=== PATIENT | female | born 1940 | race Caucasian/White ===

== ENCOUNTER 2021-03-01 21:06 | Inpatient (IN) ==
[2021-03-01] MEDS ORDERED: IOPAMIDOL 100 ML BOTTLE IV ONE (21:07)
[2021-03-01] MEDS ORDERED: ONDANSETRON 4 MG/2 ML VIAL IV ONE (22:04)
[2021-03-01] MEDS ORDERED: morphine 4 MG/ML VIAL IV ONE (22:04)
[2021-03-01] MEDS ORDERED: ACETAMINOPHEN 325 MG TABLET PO ONE (22:18)
[2021-03-01 22:23] LABS: Basophils # (Auto) 0.02 K/mcL (0.00-0.20); Basophils % (Auto) 0.2 % (0.0-2.0); Eosinophils # (Auto) 0.14 K/mcL (0.00-0.70); Eosinophils % (Auto) 1.5 % (0.0-7.0); Hematocrit 44.6 % (36.0-48.0); Hemoglobin 15.2 g/dL (12.0-15.0); Lymphocytes % (Auto) 10.5 % (15.0-49.0); Mean Cell Volume 94.5 fL (80.0-100.0); Mean Corpuscular HGB Conc 34.1 g/dL (31.0-36.0); Mean Platelet Volume 10.9 fL (7.4-10.4); Monocytes # (Auto) 0.92 K/mcL (0.10-0.90); Monocytes % (Auto) 9.6 % (1.0-12.0); Neutrophils % (Auto) 78.2 % (38.0-78.0); Platelet Count 182 K/mcL (140-440); RBC 4.72 M/mcL (4.00-5.20); Red Cell Distribution Width 13.4 % (11.5-14.5); WBC 9.6 K/mcL (4.5-11.0)
[2021-03-01 22:26] LABS: Appearance,Urine HAZY (Clear); Bilirubin,Urine Negative (Negative); Color,Urine YELLOW; Culture Indicated,Urine yes; Glucose,Urine (UA) Negative (Negative); Ketones,Urine Negative (Negative); Leukocyte Esterase,Urine 25 /ug (Negative); Mucus,Urine FEW /hpf; Nitrate,Urine Negative (Negative); Protein,Urine Negative (Negative); Specific Gravity,Urine 1.014 (1.000-1.035); Urine Blood 0.03 mg/dL (Negative); Urine RBC 8 /hpf (0-3); Urine Squamous Epithelial Cell 0 /hpf (0-4); Urine WBC 37 /hpf (0-4); Urobilinogen,Urine Negative
[2021-03-01 22:57] LABS: ALT/SGPT 16 U/L (<40); AST/SGOT 19 U/L (<32); Albumin 4.1 gm/dL (3.2-5.2); Albumin/Globulin Ratio 1.5 (1.0-2.3); Alkaline Phosphatase 84 U/L (39-117); Bilirubin,Total 0.9 mg/dL (0.1-1.0); Blood Urea Nitrogen 19 mg/dL (8-23); Calcium 9.1 mg/dL (8.6-10.4); Carbon Dioxide 22 mmol/L (22-30); Chloride 104 mmol/L (96-108); Globulin 2.7 gm/dL (2.2-3.7); Glomerular Filtration Rate 47; Glucose 128 mg/dL (70-105)
[2021-03-01 22:59] LABS: POC Creatinine 0.9 mg/dL (0.6-1.2)
[2021-03-02] MEDS ORDERED: 0.9 % SODIUM CHLORIDE 1,000 ML IV ONE (01:58)
[2021-03-02] MEDS ORDERED: ONDANSETRON 4 MG/2 ML VIAL IV PRN (02:02)
[2021-03-02] MEDS: 0.9 % SODIUM CHLORIDE 1,000 ML IV SCH ×2 (03:09→16:57)
--- NOTE | 2021-03-02 04:03 | Emergency Department Note ---
Abdominal Pain HPI General Chief Complaint: Abdominal Pain Stated Complaint: abd. pain Time Seen by Provider: 03/01/21 21:10 Source: patient Mode of arrival: ambulatory Limitations: no limitations History of Present Illness HPI Narrative: Narrative: 81-year-old female with a distant history of cervical cancer treated with surgery more than 20 years ago. Due to this she also has a chronic urostomy as well as ostomy. She is also had a history of small bowel obstructions subsequent to this. She is presenting to the ED with some generalized lower abdominal pain for the past several hours. Also decreased output from her ostomy since this morning. Has had couple episodes of nausea vomiting but no fever no chills no cardiorespiratory complaints no urinary symptoms. No other complaints. Related Data Home Medications Medication Instructions Recorded Confirmed L.acidophjasonB. lactis 1 ea PO DAILY 09/03/15 09/03/15 amlodipine 5 mg PO DAILY 09/03/15 09/03/15 cholestyramine-aspartame 210 gm PO DAILY 09/03/15 09/03/15 [Cholestyramine Light Powder] fenofibrate nanocrystallized 48 mg PO DAILY 09/03/15 09/03/15 fluticasone propionate 1 spray NS BID 09/03/15 09/03/15 furosemide 40 mg PO DAILY 09/03/15 09/03/15 gabapentin 100 mg PO TID 09/03/15 09/03/15 losartan [Cozaar] 100 mg PO DAILY 09/03/15 09/03/15 metoprolol succinate [Toprol Xl] 50 mg PO DAILY 09/03/15 09/03/15 potassium chloride [Klor-Con 20 meq PO DAILY 09/03/15 09/03/15 Sprinkle] simvastatin 10 mg PO DAILY 09/03/15 09/03/15 trimethoprim 100 mg PO DAILY 09/03/15 09/03/15 warfarin [Jantoven] 5 mg PO DAILY 09/03/15 09/03/15 Allergies Allergy/AdvReac Type Severity Reaction Status Date / Time Penicillins [PENICILLINS] Allergy Intermediate RASH, HIVES Verified 03/01/21 21:12 Sulfa (Sulfonamide Allergy Intermediate RASH,HIVES Verified 03/01/21 21:12 Antibiotics) hydrocodone [HYDROCODONE] Allergy Unknown hallucinati Verified 03/01/21 21:12 ons oxycodone [Oxycodone] Allergy Unknown Verified 03/01/21 21:12 Review of Systems ROS ROS Narrative: Narrative: At least 10 systems reviewed and otherwise acutely negative except as in the HPI [facility] Narrative Patient History Narrative: Narrative: Medical/Surgical/Family History All Active Problems SBO (small bowel obstruction) (Acute) Social History Smoking Status: Never smoker Exam Narrative Narrative: Narrative: Constitutional: normally developed, no acute distress . Head: Normocephalic, atraumatic, Eyes: No Icterus, ENT: Moist mucus membranes, Neck: Supple, Cardiac: Normal heart sounds, palpable radial pulses, no peripheral edema Pulmonary: Normal respiratory effort. Breath sounds clear, no wheeze, rhonchi, rales, Gastrointestinal: Abdomen soft, non-distended, some mild generalized tenderness no rebound no guarding. Well-appearing grossly clear urine/urostomy on the rig ht lower quadrant, left lower quadrant ostomy with trace bowel output in the bag Musculoskeletal: No gross deformities, well perfused Skin: warm, dry Neuro: Alert and oriented. General Limitations: no limitations Course Vital Signs Vital signs: Vital Signs Temperature 36.6 C 03/01/21 21:07 Pulse Rate 82 03/01/21 21:07 Respiratory Rate 18 03/01/21 21:07 Blood Pressure 149/98 03/01/21 21:07 Pulse Oximetry (%) 96 03/01/21 21:07 Temperature 36.6 C 03/01/21 21:07 Pulse Rate 75 03/02/21 03:45 Respiratory Rate 18 03/01/21 21:07 Blood Pressure 146/78 03/02/21 03:45 Pulse Oximetry (%) 93 03/02/21 03:45 [facility] MDM Narrative Medical decision making narrative: Narrative: Patient presenting with some generalized lower abdominal pain decreased output from her ostomy with a history of small bowel obstructions ever since she had extensive abdominal surgery due to cervical cancer more than 20 years ago. Work-up is initiated CBC is unremarkable Electrolytes unremarkable Urinalysis is negative for nitrates, does show some mild leukocyte esterase and some WBCs no bacteria. Unclear if UTI, however given her history and generalized lower abdominal pain we will treat her with a gram of Rocephin while awaiting her urine culture LFTs lipase bilirubin within normal CT has multiple findings, most pertinent to today's presentation is a early small bowel obstruction. Also incidental findings suspicious for underlying metastatic disease with some sclerotic lumbar lesions as well as a pulmonary nodule. Also a "amorphous" pelvic mass although radiologist suspects this is small bowel loops possibly related to her SBO Did discuss all findings with the patient and family member in depth including her CT results and the concern that she may actually have an underlying undiagnosed metastasis possibly due to her old history of cervical cancer. Did speak with Dr. Cortez on-call for surgery who does accept admission for the SBO. Did not want an NG tube at this time, patient has not been vomiting here and is very comfortable. Did also request if we put in a consultation to the hospitalist to help with management regarding her other medical comorbidities which I did place in the EMR. Patient admitted at this time very comfortable with stable vitals on reevaluation no new Lab Data Result diagrams: 03/01/21 21:38 03/01/21 21:38 Labs: Lab Results 03/01/21 03/01/21 03/01/21 Range/Units 21:30 21:38 21:38 WBC 9.6 (4.5-11.0) K/mcL RBC 4.72 (4.00-5.20) M/mcL Hgb 15.2 H (12.0-15.0) g/dL Hct 44.6 (36.0-48.0) % MCV 94.5 (80.0-100.0) fL MCH 32.2 (26.0-34.0) pg MCHC 34.1 (31.0-36.0) g/dL RDW 13.4 (11.5-14.5) % Plt Count 182 (140-440) K/mcL MPV 10.9 H (7.4-10.4) fL Neut % (Auto) 78.2 H (38.0-78.0) % Lymph % (Auto) 10.5 L (15.0-49.0) % [place] % (Auto) 9.6 (1.0-12.0) % Eos % (Auto) 1.5 (0.0-7.0) % Baso % (Auto) 0.2 (0.0-2.0) % Lymph # (Auto) 1.00 L (1.50-4.80) K/mcL [place] # (Auto) 0.92 H (0.10-0.90) K/mcL Eos # (Auto) 0.14 (0.00-0.70) K/mcL Baso # (Auto) 0.02 (0.00-0.20) K/mcL Absolute Neutrophils 7.47 (1.80-8.00) K/mcL Sodium 139 (133-145) mmol/L Potassium 4.0 (3.3-5.1) mmol/L Chloride 104 (96-108) mmol/L Carbon Dioxide 22 (22-30) mmol/L Anion Gap 13.0 (8.0-16.0) BUN 19 (8-23) mg/dL Creatinine 1.1 (0.6-1.1) mg/dL POC Creatinine (0.6-1.2) mg/dL GFR Calculation 47 Glucose 128 H (70-105) mg/dL Calcium 9.1 (8.6-10.4) mg/dL Total Bilirubin 0.9 (0.1-1.0) mg/dL AST 19 (<32) U/L ALT 16 (<40) U/L Alkaline Phosphatase 84 (39-117) U/L Total Protein 6.8 (5.9-8.4) gm/dL Albumin 4.1 (3.2-5.2) gm/dL Globulin 2.7 (2.2-3.7) gm/dL Albumin/Globulin Ratio 1.5 (1.0-2.3) Lipase 36 (7-60) U/L Urine Color Yellow Urine Appearance Hazy A (Clear) Urine pH 7.0 (5.0-9.0) Ur Specific [place] 1.014 (1.000-1.035) Urine Protein Negative (Negative) mg/dL Urine Glucose (UA) Negative (Negative) mg/dL Urine Ketones Negative (Negative) mg/dL Urine Occult Blood 0.03 (Negative) mg/dL Urine Nitrate Negative (Negative) Urine Bilirubin Negative (Negative) mg/dL Urine Urobilinogen Negative mg/dL Ur Leukocyte Esterase 25 A (Negative) /ug Urine RBC 8 H (0-3) /hpf Urine WBC 37 H (0-4) /hpf Ur Squamous Epith Cells 0 (0-4) /hpf Urine Bacteria None (0) /hpf Urine Mucus Few A (None) /hpf Ur Culture Indicated? yes 08/09/21 Range/Units 22:45 WBC (4.5-11.0) K/mcL RBC (4.00-5.20) M/mcL Hgb (12.0-15.0) g/dL Hct (36.0-48.0) % MCV (80.0-100.0) fL MCH (26.0-34.0) pg MCHC (31.0-36.0) g/dL RDW (11.5-14.5) % Plt Count (140-440) K/mcL MPV (7.4-10.4) fL Neut % (Auto) (38.0-78.0) % Lymph % (Auto) (15.0-49.0) % [place] % (Auto) (1.0-12.0) % Eos % (Auto) (0.0-7.0) % Baso % (Auto) (0.0-2.0) % Lymph # (Auto) (1.50-4.80) K/mcL [place] # (Auto) (0.10-0.90) K/mcL Eos # (Auto) (0.00-0.70) K/mcL Baso # (Auto) (0.00-0.20) K/mcL Absolute Neutrophils (1.80-8.00) K/mcL Sodium (133-145) mmol/L Potassium (3.3-5.1) mmol/L Chloride (96-108) mmol/L Carbon Dioxide (22-30) mmol/L Anion Gap (8.0-16.0) BUN (8-23) mg/dL Creatinine (0.6-1.1) mg/dL POC Creatinine 0.9 (0.6-1.2) mg/dL GFR Calculation Glucose (70-105) mg/dL Calcium (8.6-10.4) mg/dL Total Bilirubin (0.1-1.0) mg/dL AST (<32) U/L ALT (<40) U/L Alkaline Phosphatase (39-117) U/L Total Protein (5.9-8.4) gm/dL Albumin (3.2-5.2) gm/dL Globulin (2.2-3.7) gm/dL Albumin/Globulin Ratio (1.0-2.3) Lipase (7-60) U/L Urine Color Urine Appearance (Clear) Urine pH (5.0-9.0) Ur Specific [place] (1.000-1.035) Urine Protein (Negative) mg/dL Urine Glucose (UA) (Negative) mg/dL Urine Ketones (Negative) mg/dL Urine Occult Blood (Negative) mg/dL Urine Nitrate (Negative) Urine Bilirubin (Negative) mg/dL Urine Urobilinogen mg/dL Ur Leukocyte Esterase (Negative) /ug Urine RBC (0-3) /hpf Urine WBC (0-4) /hpf Ur Squamous Epith Cells (0-4) /hpf Urine Bacteria (0) /hpf Urine Mucus (None) /hpf Ur Culture Indicated? ED POC Tests ED POC Tests: ANILA - SARS Antigen Positive Discharge Plan Patient/Caregiver Discharge Instructions Pt seen by [facility]/PA only: No Clinical Impression: SBO (small bowel obstruction) Patient Disposition: Xfer As Inpt ([facility]) Condition: Fair Follow up with: Nasreen Pacheco MD [Primary Care Provider] - Prescriptions: No Action furosemide 40 MG Tablet 40 mg PO DAILY RF: 0 potassium chloride [Klor-Con Sprinkle] 10 MEQ Capsule.Er 20 meq PO DAILY RF: 0 metoprolol succinate [Toprol XL] 50 MG Tab.Er.24h 50 mg PO DAILY RF: 0 simvastatin 10 MG Tablet 10 mg PO DAILY RF: 0 amlodipine 5 MG Tablet 5 mg PO DAILY RF: 0 trimethoprim 100 MG Tablet 100 mg PO DAILY RF: 0 warfarin [Jantoven] 5 MG Tablet 5 mg PO DAILY RF: 0 gabapentin 100 MG Capsule 100 mg PO TID RF: 0 losartan [Cozaar] 100 MG Tablet 100 mg PO DAILY RF: 0 fenofibrate nanocrystallized 48 MG Tablet 48 mg PO DAILY RF: 0 cholestyramine-aspartame [Cholestyramine Light] 239.4 GM Powder 210 gm PO DAILY RF: 0 L.acidoph, paracasei,B. lactis 1 EACH Capsule 1 ea PO DAILY RF: 0 fluticasone propionate 1 SPRAY Nabb.Adrian 1 spray NS BID RF: 0
[2021-03-02] MEDS ORDERED: cefTRIAXone 1 GM VIAL IV ONE (04:05)
--- NOTE | 2021-03-02 06:07 | Cat Scan Report ---
INDICATION: Abdominal pain. History of cervical carcinoma. Previous pelvic exenteration with partial colectomy, cystectomy, hysterectomy. COMPARISON: Previous examination dated 09/14/2009 TECHNIQUE: Axial images were obtained through the abdomen and pelvis. Sagittally and coronally reformatted images. 80 mL Isovue 370 injected intravenously. Oral contrast material was not given FINDINGS: Examination was initially interpreted by [facility] Lung bases:Reticular abnormality of both lung bases. There is a 13 mm nodule in the posterior basilar segment of the right lower lobe. This is suspicious for malignancy. PET CT scan is recommended. Liver:Findings consistent with hepatic steatosis. No focal mass. Liver contour is mildly nodular. Gallbladder, bilary:Previous cholecystectomy. No dilated bile ducts Spleen:No splenomegaly. Normal enhancement of splenic and portal veins. Pancreas:No pancreatic mass. No peripancreatic abnormality Adrenal glands:Negative Kidneys, ureters, bladder: There are bilateral renal cysts. No solid renal mass. There is no hydronephrosis. Previous cystectomy and creation of a urinary diverting ileal pouch. There is no hydroureter. There is a right lower abdominal stoma Gastrointestinal:Previous partial colectomy with left lower quadrant colostomy. Small bowel is mildly dilated and measures approximately 2.5 cm in diameter. There is an anastomotic suture line within the small bowel in the midline pelvis. 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 There is small bowel feces sign. No evidence for small bowel ischemia. The stomal defect measures approximately 9 cm in craniocaudal dimension and 4 cm in mediolateral dimension. Appendix: The appendix is negative Vascular:There is vascular calcification. No abdominal aortic aneurysm. There is calcification of the origins of the celiac trunk and superior mesenteric artery. There is thrombus within the superior mesenteric artery approximately 5 cm from its origin. This is nonocclusive. Lymphatic:No retroperitoneal or mesenteric adenopathy Mesentery, peritoneum: No free intraperitoneal fluid. No intra-abdominal abscess. There is abnormality in the right side of the pelvis with abnormal calcification. This is not clearly separable from small bowel. An amorphous retroperitoneal mass is suspected. This may be metastatic from this patient's known cervical carcinoma. PET/CT scan may be helpful for further evaluation Reproductive:Previous hysterectomy and presumed oophorectomy Musculoskeletal:No lumbar compression fractures. Small sclerotic foci in the L2 and L3 vertebral bodies. Sacrum is negative. No pelvic fracture. There is mild irregularity of the right inferior pubic ramus but no acute fracture. Appearance consistent with avascular necrosis of the left femoral head. IMPRESSION: 1. History of cervical carcinoma and previous pelvic exenteration 2. 13 mm noncalcified nodule right lower lobe. Findings are suspicious for malignancy. PET CT scan recommended 3. Previous cholecystectomy. No hepatic mass 4. Previous ureteral diversion with ileal pouch and right lower abdominal stoma 5. Partial or early mechanical small bowel obstruction. There is small bowel feces sign within the pelvis. Most likely secondary to left-sided stomal hernia 6. Previous partial colectomy with left lower quadrant colostomy 7. Mass with calcification in the right lower pelvis. This is not separable from small bowel. This may be metastatic disease. PET CT scan may be helpful for further evaluation 8. Avascular necrosis of the left femoral head 9. Atherosclerotic disease as above The exam was performed using radiation dose optimization techniques including, but not limited to, automated exposure control, adjustment of the mA and/or kV according to patient size and use of iterative reconstruction technique. Interpreted and Authenticated by: Tereso Solis 03/02/21
--- NOTE | 2021-03-02 10:01 | General Surg History&Physical ---
HPI History of Present Illness Patient information: Note initiated : 03/02/21 at 9:57 am Service Date, if different from initiated Date: [] Patient: Kemi Bauer 81 y/o F admitted on 03/02/21 for abd. pain. Chief Complaint: [] Chief complaint: Crampy abdominal pain History of present illness: Ms. Bauer is a 81 year old F who presents with 1 day history of decreased ostomy output and crampy abdominal pain. Patient has a significant past surgical history of cervical cancer for which he underwent exploratory laparotomy, hysterectomy, end ostomy and also has a urostomy. The reason for the urostomy is not fully understood, the surgery was all done in [place] many years ago. Since that time she has had one episode of a small bowel obstruction which was resolved with conservative management. At this time she denies any fevers or chills, no diarrhea, has had decreased ostomy output for the last 24 hours, has no cough or shortness of breath. Review of Systems Review of systems: All systems are reviewed, negative other than above PFSH PFSH All Active Problems SBO (small bowel obstruction) (Acute) MEDS/ALLERGIES Home Medications and Allergies Home Medications Medication Instructions Recorded Confirmed Type L.acidoph, paracasei,B. lactis 1 ea PO DAILY 09/03/15 09/03/15 History amlodipine 5 mg PO DAILY 09/03/15 09/03/15 History cholestyramine-aspartame 210 gm PO DAILY 09/03/15 09/03/15 History [Cholestyramine Light Powder] fenofibrate nanocrystallized 48 mg PO DAILY 09/03/15 09/03/15 History fluticasone propionate 1 spray NS BID 09/03/15 09/03/15 History furosemide 10 mg PO DAILY 09/03/15 09/03/15 History gabapentin 100 mg PO TID 09/03/15 09/03/15 History losartan [Cozaar] 100 mg PO DAILY 09/03/15 09/03/15 History metoprolol succinate [Toprol Xl] 50 mg PO DAILY 09/03/15 09/03/15 History potassium chloride [Klor-Con 20 meq PO DAILY 09/03/15 09/03/15 History Sprinkle] simvastatin 10 mg PO DAILY 09/03/15 09/03/15 History trimethoprim 100 mg PO DAILY 09/03/15 09/03/15 History warfarin [Jantoven] 5 mg PO DAILY 09/03/15 09/03/15 History Allergies Allergy/AdvReac Type Severity Reaction Status Date / Time Penicillins [PENICILLINS] Allergy Intermediate RASH, HIVES Verified 03/01/21 21:12 Sulfa (Sulfonamide Allergy Intermediate RASH,HIVES Verified 03/01/21 21:12 Antibiotics) hydrocodone [HYDROCODONE] Allergy Unknown hallucinati Verified 03/01/21 21:12 ons oxycodone [Oxycodone] Allergy Unknown Verified 03/01/21 21:12 Physical Examination Vital Signs Vital signs: Temp Pulse Resp BP Pulse Ox 97.8 F 72 18 140/88 97 03/02/21 04:55 03/02/21 08:00 03/02/21 04:55 03/02/21 04:55 03/02/21 08:00 General physical appearance General physical exam: well developed, well nourished and no distress Eyes Eye exam: PERRL and normal ocular movement ENT ENT exam: normal pinna, normal nares, normal mucosa, no hearing loss and no congestion Head Head exam IM: Present atraumatic and normocephalic Neck Neck exam: no masses, no bruits, trachea midline, no lymphadenopathy and no venous distension Cardiovascular Cardiovascular exam IM: Present normal rate and rhythm Respiratory Respiratory exam: normal expansion, normal respiratory effort, clear to percussion and clear to auscultation Abdomen Abdomen: Present soft, non tender, bowel sounds and distended Hernia: Present none Genitourinary Genitourinary (Female): Present normal external genitalia Rectum Rectum: Present normal sphincter tone, no hemorrhoids, no tenderness, no masses and no bleeding Integumentary Integumentary: Present no rash, no growths and no abnormal pigmentation Neurologic Neurologic: Present normal coordination and normal sensation Musculoskeletal Musculoskeletal: Present normal gait and normal posture Psychiatric Psychiatric: Present oriented to time, oriented to person, oriented to place, speech is normal and memory intact Results Labs Result diagrams: 03/01/21 21:38 03/01/21 21:38 Labs: Abnormal lab results 03/01/21 03/01/21 03/01/21 Range/Units 21:30 21:38 21:38 Hgb 15.2 H (12.0-15.0) g/dL MPV 10.9 H (7.4-10.4) fL Neut % (Auto) 78.2 H (38.0-78.0) % Lymph % (Auto) 10.5 L (15.0-49.0) % Lymph # (Auto) 1.00 L (1.50-4.80) K/mcL [place] # (Auto) 0.92 H (0.10-0.90) K/mcL Glucose 128 H (70-105) mg/dL Urine Appearance Hazy A (Clear) Ur Leukocyte Esterase 25 A (Negative) /ug Urine RBC 8 H (0-3) /hpf Urine WBC 37 H (0-4) /hpf Urine Mucus Few A (None) /hpf Diabetes panel 03/01/21 Range/Units 21:38 Sodium 139 (133-145) mmol/L Potassium 4.0 (3.3-5.1) mmol/L Chloride 104 (96-108) mmol/L Carbon Dioxide 22 (22-30) mmol/L BUN 19 (8-23) mg/dL Creatinine 1.1 (0.6-1.1) mg/dL Glucose 128 H (70-105) mg/dL Calcium 9.1 (8.6-10.4) mg/dL AST 19 (<32) U/L ALT 16 (<40) U/L Alkaline Phosphatase 84 (39-117) U/L Total Protein 6.8 (5.9-8.4) gm/dL Albumin 4.1 (3.2-5.2) gm/dL Calcium panel 03/01/21 Range/Units 21:38 Calcium 9.1 (8.6-10.4) mg/dL Albumin 4.1 (3.2-5.2) gm/dL Pituitary panel 03/01/21 Range/Units 21:38 Sodium 139 (133-145) mmol/L Potassium 4.0 (3.3-5.1) mmol/L Chloride 104 (96-108) mmol/L Carbon Dioxide 22 (22-30) mmol/L BUN 19 (8-23) mg/dL Creatinine 1.1 (0.6-1.1) mg/dL Glucose 128 H (70-105) mg/dL Calcium 9.1 (8.6-10.4) mg/dL Adrenal panel 03/01/21 Range/Units 21:38 Sodium 139 (133-145) mmol/L Potassium 4.0 (3.3-5.1) mmol/L Chloride 104 (96-108) mmol/L Carbon Dioxide 22 (22-30) mmol/L BUN 19 (8-23) mg/dL Creatinine 1.1 (0.6-1.1) mg/dL Glucose 128 H (70-105) mg/dL Calcium 9.1 (8.6-10.4) mg/dL Total Bilirubin 0.9 (0.1-1.0) mg/dL AST 19 (<32) U/L ALT 16 (<40) U/L Alkaline Phosphatase 84 (39-117) U/L Total Protein 6.8 (5.9-8.4) gm/dL Albumin 4.1 (3.2-5.2) gm/dL All other labs normal. A/P Narrative A/P Narrative: This is a pleasant 81-year-old female status post exploratory laparotomy for abdominal hysterectomy, patient with end ostomy and urostomy with decreased ostomy output for the last 24 to 48 hours. At this time she has no nausea or vomiting. CT scan is reviewed and consistent with a mild partial small bowel obstruction. Plan: Admit, n.p.o., small bowel follow-through today. Time Spent With Patient Time: Total time spent is greater than 50% in coordination of care (as documented) at patient's floor/unit and/or counseling patient:
[2021-03-02] MEDS ORDERED: DIATRIZOATE MEGLU/DIATRIZO SOD 30 ML BOTTLE PO ONE ×2 (10:12)
--- NOTE | 2021-03-02 10:21 | XRay Report ---
INDICATION: sbo TECHNIQUE: Oral water soluble contrast material was given COMPARISON: Previous CT scan dated 03/01/2021 FINDINGS: Normal small bowel study. There is contrast material in the colon by 30 minutes postingestion. There is no significant small bowel dilatation or focal abnormality. No evidence for partial or complete mechanical small bowel obstruction IMPRESSION: 1. Negative small bowel study with water-soluble contrast material 2. Contrast material in the colon by 30 minutes post ingestion. No small bowel dilatation Interpreted and Authenticated by: Tereso Solis 03/02/21
--- NOTE | 2021-03-02 16:43 | Discharge Summary ---
Discharge Provider Provider Patient information: Note initiated : 03/02/21 at 4:41 pm Service Date, if different from initiated Date: [] Patient: Kemi Bauer 81 y/o F admitted on 03/02/21 for abd. pain. Chief Complaint: [] Date of admission: 03/02/21 04:43 Discharge date: 03/02/21 Primary care physician: Nasreen Pacheco Consults: 03/02/21 Consult to Physician [CONS] Stat Comment: consult for medical mgt, admitted for SBO Consulting Provider: Andrei Magana Reason For Exam: Physician to Consult 03/02/21 07:27 Consult to Physician [CONS] Routine Comment: Consulting Provider: Ritesh Cortez Reason For Exam: Physician to Consult COURSE Hospital Course Hospital course: Patient admitted with psbo, sbft negative for obstruction, patient had return of bowel function after sbft, tolerated regular diet Discharge diagnosis: psbo Pertinent studies/significant findings: CT scan with possible recurrence of cervicle ca, recommend referal to heme/onc and [employer] for further evaluation. Time Spent with Patient Time attestation: Total time spent providing and/or coordinating discharge services: Physical Examination Vital Signs Vital signs: Temp Pulse Resp BP Pulse Ox 98.1 F 74 20 142/84 94 03/02/21 12:00 03/02/21 12:00 03/02/21 12:00 03/02/21 12:00 03/02/21 12:00 Discharge Plan Patient/Caregiver Discharge Instructions Activity: increase activity as tolerated Diet: Regular Diet Activity Restrictions/Additional Instructions: f/u with pcp prn for referal to heme/onc to review new findings on CT Prescriptions: Continued furosemide 40 MG tablet 10 mg PO DAILY RF: 0 potassium chloride [Klor-Con Sprinkle] 10 MEQ capsule, extended release 20 meq PO DAILY RF: 0 metoprolol succinate [Toprol XL] 50 MG tablet extended release 24 hr 50 mg PO DAILY RF: 0 simvastatin 10 MG tablet 10 mg PO DAILY RF: 0 amlodipine 5 MG tablet 5 mg PO DAILY RF: 0 trimethoprim 100 MG tablet 100 mg PO DAILY RF: 0 warfarin [Jantoven] 5 MG tablet 5 mg PO DAILY RF: 0 gabapentin 100 MG capsule 100 mg PO TID RF: 0 losartan [Cozaar] 100 MG tablet 100 mg PO DAILY RF: 0 fenofibrate nanocrystallized 48 MG tablet 48 mg PO DAILY RF: 0 Cholestyramine Light 239.4 GM powder 210 gm PO DAILY RF: 0 L.acidoph, paracasei,B. lactis 1 EACH capsule 1 ea PO DAILY RF: 0 fluticasone propionate 1 SPRAY spray,suspension 1 spray NS BID RF: 0 Follow Up Plan Follow up with: Nasreen Pacheco MD [Primary Care Provider] - Patient Disposition: Home, Self-Care Prognosis: Fair Overall status at discharge: patient is back to baseline Discharge Orders: Discharge Order (Routine); Ordered 03/02/21 Ordered By: iRtesh Cortez Pending Pending Pending: Diet Regular Diet Start MonMar 02 1230 Sodium Chloride (Sodium Chloride 0.9%) 1,000 mls @ 75 mls/hr IV .[id number] AGUSTÍN Last Infusion: 03/02/21 05:59 Dose: 75 mls/hr Documented by: Infusion: 03/02/21 04:50 Dose: 0 mls/hr Documented by: Admin: 03/02/21 03:09 Dose: 75 mls/hr Documented by: SAW Shift Summary 03/02/21 06:07 Shift Summary by Keya Burks Pt arrived to unit from ED @ 0445. Pt is a 81yo F, pleasant and cooperative, admitted for abd pain and no ostomy output since yesterday. Pt has hx of cervical cancer 20 yrs ago and had ostomy/urostomy since then. She is A/O independent in the room. VSS, stable on RA. Currently rating abd pain rating 2/10, no c/o of nausea. RLQ urostomy with yellow urine and LLQ ostomy without output. covid test came back positive, pt was re swabbed and currently waiting for result. Initialized on 03/02/21 06:07 - END OF NOTE
[2021-03-02] MEDS ORDERED: traZODone HCL 50 MG TABLET PO PRN (20:52)
[2021-03-02] MEDS ORDERED: ONDANSETRON 4 MG ODT TABLET SL PRN (20:52)
[2021-03-02] MEDS ORDERED: ACETAMINOPHEN 325 MG TABLET PO PRN (20:53)
[2021-03-02] MEDS ORDERED: SIMVASTATIN 10 MG TABLET PO SCH (21:00)
[2021-03-02] MEDS: GABAPENTIN 100 MG CAPSULE PO SCH (22:07)
[2021-03-03 08:17] LABS: INR 1.2 (0.9-1.1); Prothrombin Time 15.7 sec (11.9-14.5)
[2021-03-03] MEDS: GABAPENTIN 100 MG CAPSULE PO SCH (08:22)
[2021-03-03] MEDS ORDERED: FENOFIBRATE 43 MG CAPSULE PO SCH (09:00)
[2021-03-03] MEDS ORDERED: METOPROLOL SUCCINATE 50 MG TAB.XL.24H PO SCH (09:00)
[2021-03-03] MEDS ORDERED: POTASSIUM CHLORIDE 20 MEQ PACKET PO SCH (09:00)
[2021-03-03] MEDS ORDERED: FUROSEMIDE 20 MG TABLET PO SCH (09:00)
[2021-03-03] MEDS ORDERED: LOSARTAN 50 MG TABLET PO SCH (09:00)
[2021-03-03] MEDS ORDERED: TRIMETHOPRIM 100 MG TABLET PO SCH ×2 (09:00)
[2021-03-03] MEDS ORDERED: amLODIPine 5 MG TABLET PO SCH (09:00)
[2021-03-03] MEDS ORDERED: WARFARIN 5 MG TABLET PO SCH (14:00)
== END 2021-03-03 11:50 | disposition home or self-care (01) | DRG 390 ==
LOC: ED 21:06 → MEDSUR 03-02 04:20
PROVIDERS: ADMIT Surgery; ATTEND Surgery